=== PATIENT | female | born 1975 | race Caucasian/White ===

== ENCOUNTER 2018-04-28 14:10 | Emergency (ER) | payer SELFPAY ==
[~2018-04-28] VITALS: Ht 165.1 cm; Wt 66.7 kg
[2018-04-28 14:44] VITALS: BP 139/91
[2018-04-28] MEDS: IBUPROFEN 600 MG TAB PO ONE (18:52)
[2018-04-28] MEDS: LORazepam 1 MG TAB PO ONE (18:52)
[2018-04-28] MEDS: COMMUNICATION ORDER MC STA (18:53)
[2018-04-28 19:30] VITALS: BP 120/74
== END 2018-04-28 19:30 | disposition home or self-care (01) ==
LOC: MED 14:10
DX: F41.0 Panic disorder [episodic paroxysmal anxiety] (principal); R06.4 Hyperventilation
CPT/HCPCS: 81002; 81025; 99283